=== PATIENT | male | born 1980 | race Hispanic/Latino ===

== ENCOUNTER 2016-08-02 22:48 | Emergency (ER) | payer SELFPAY ==
[~2016-08-02] VITALS: Ht 170.2 cm; Wt 91.0 kg
[~2016-08-02 22:48] MED LIST: METFORMIN500 M1 PO
[2016-08-03 01:09] VITALS: BP 128/91
== END 2016-08-03 01:15 | disposition home or self-care (01) | DRG 605 ==
LOC: ED 22:48
PROC: 0HQ7XZZ Repair Abdomen Skin, External Approach (ICD-10-PCS; principal; 2016-08-03)
DX: S31.110A Laceration without foreign body of abdominal wall, right upper quadrant without penetration into peritoneal cavity, initial encounter (principal); X99.9XXA Assault by unspecified sharp object, initial encounter

== ENCOUNTER 2016-08-11 11:41 | Emergency (ER) | payer SELFPAY ==
[~2016-08-11] VITALS: Ht 170.2 cm; Wt 90.9 kg
[2016-08-11 12:17] VITALS: BP 148/87
== END 2016-08-11 12:18 | disposition home or self-care (01) | DRG 950 ==
LOC: ED 11:41
DX: S31.109D Unspecified open wound of abdominal wall, unspecified quadrant without penetration into peritoneal cavity, subsequent encounter (principal); X58.XXXD Exposure to other specified factors, subsequent encounter

== ENCOUNTER 2018-09-19 08:20 | Emergency (ER) | payer SELFPAY ==
[~2018-09-19] VITALS: Ht 170.2 cm; Wt 80.0 kg
[2018-09-19 09:29] VITALS: BP 159/90
[2018-09-19 09:56] LABS: URINE BILIRUBIN - DIPSTICK NEGATIVE (NEGATIVE); URINE BLOOD DIPSTICK TRACE-INTACT (NEGATIVE); URINE COLOR YELLOW; URINE GLUCOSE - DIPSTICK 100 mg/dL (NEGATIVE); URINE KETONE NEGATIVE (NEGATIVE); URINE LEUK ESTERASE LARGE (NEGATIVE); URINE NITRITE - DIPSTICK NEGATIVE (Negative); URINE PROTEIN - DIPSTICK NEGATIVE (NEG-TRACE); URINE SPECIFIC GRAVITY <=1.005; URINE UROBILINOGEN - DIPSTICK 0.2 E.U./dL (0.2)
[2018-09-19 10:02] LABS: URINE WBC 50-100 WBC/hpf (0-5)
== END 2018-09-19 10:15 | disposition home or self-care (01) | DRG 696 ==
LOC: ED 08:20
PROVIDERS: Family Medicine
DX: R36.9 Urethral discharge, unspecified (principal); E11.9 Type 2 diabetes mellitus without complications; Z77.21 Contact with and (suspected) exposure to potentially hazardous body fluids
CPT/HCPCS: J0561

== ENCOUNTER 2020-07-16 | Emergency (ER) | payer SELFPAY ==
[2020-07-16 15:36] LABS: HEMATOCRIT 42.5 % (39.0-50.0); HEMOGLOBIN 14.8 g/dl (14.0-18.0); IMMATURE GRANULOCYTES 0.2 % (0.0-5.0); MEAN CELL VOLUME 97.7 fL CALC (80.0-100.0); MEAN CORPUSCULAR HGB CONC 34.8 g/dL CAL (32.0-36.0); NEUT# 8.91 thou/uL (1.82-7.42); RED BLOOD COUNT 4.35 mill/uL (4.70-6.10); RED CELL DISTRI WIDTH 11.9 % (11.5-15.5)
[2020-07-16 16:05] LABS: ALKALINE PHOSPHATASE 145 u/l (38-126); ANION GAP 19 (6-22 (CALC)); BILIRUBIN, TOTAL 1.2 mg/dL (0.0-1.4); BUN 10 mg/dL (9-20); BUN/CREATININE RATIO 21 (12-20 (CALC)); CARBON DIOXIDE 21 mmol/l (22-30); CHLORIDE 101 mmol/l (95-108); CREATININE 0.5 mg/dL (0.7-1.3); GFR > 60 ML/MIN (>=60 (CALC)); GFR FOR AFR.AMER. > 60 ML/MIN (>=60 (CALC)); POTASSIUM 3.6 mmol/l (3.5-5.1); SODIUM 137 mmol/l (137-146)
[2020-07-16 16:11] LABS: SGOT/AST 109 u/l (17-59); TOTAL PROTEIN 9.5 g/dL (6.3-8.2)
[2020-07-16 17:31] LABS: AMYLASE 66 u/l (30-110); ETHYL ALCOHOL 71 mg/dl (0-30); LIPASE 155 u/l (23-300)
[2020-07-16] MEDS ORDERED: ONDANSETRON4 MG PO (18:53)
[2020-07-16] MEDS ORDERED: KEFLEX500 M1 PO (18:53)
[2020-07-16] MEDS ORDERED: PREVACID30 M3 PO (18:53)
== END 2020-07-16 19:20 | disposition home or self-care (01) | DRG 690 ==
PROVIDERS: Emergency Medicine
DX: N30.90 Cystitis, unspecified without hematuria (principal); F10.10 Alcohol abuse, uncomplicated; E11.9 Type 2 diabetes mellitus without complications; I10 Essential (primary) hypertension
CPT/HCPCS: Q9967